=== PATIENT | male | born 2000 | race Caucasian/White ===

== ENCOUNTER → 2022-11-17 | Outpatient (CLI) | payer OTHER, SELFPAY ==
[2022-11-17 15:13] LABS: Absolute Neutrophil Count 2.9 X10^3/uL (2.0-7.7); Basophil# 0.04 X10^3/uL; Basophil% 0.7 % (0-1); Eosinophil# 0.08 X10^3/uL; Eosinophils% 1.5 % (0-5); Hematocrit 44.3 % (40-54); Hemoglobin 15.2 g/dL (13.0-16.5); Lymphocyte % 33.1 % (19-41); Mean Corp Hgb Conc 34.3 g/dL (32-36); Mean Corpuscular Hgb 31.5 pg (27.0-32.0); Mean Corpuscular Volume 91.7 fL (80-94); Monocyte# 0.58 X10^3/uL; Monocyte% 10.7 % (0-10); NRBC Flagged by Analyzer 0 % (0-5); Neutrophil # 2.93 X10^3/uL (2.7-7.7); Neutrophil % 53.8 % (47-70); Platelet Count 331 K/mm3 (150-450); RBC Distribution Width CV 11.9 % (11.6-14.6); RBC Distribution Width SD 40.2 fl (35.1-43.9); Red Blood Count 4.83 M/mm3 (4.6-6.2); White Blood Count 5.4 K/mm3 (4.4-11.0)
[2022-11-17 15:34] LABS: ALB/GLOB Ratio 1.3 RATIO (0.9-2.4); AST(SGOT) 17 U/L (15-37); Alanine Aminotransfer ALT/SGPT 19 U/L (16-61); Albumin, Serum 4.1 g/dL (3.2-5.0); Alkaline Phosphatase 50 U/L (45-117); Anion Gap 7 (5-15); BUN 17 mg/dL (7-18); BUN/Creat Ratio 13.8 RATIO (10-20); Calcium,Total 9.5 mg/dL (8.5-10.1); Chloride 107 mmol/L (98-107); Creatinine, Serum 1.23 mg/dL (0.70-1.30); EST Glomerular Filtration Rate 78 mL/min (>60); Est Glom Filt Rate - Afr Amer 94 mL/min (>60); Globulin 3.2 g/dL (2.2-4.2); Glucose 101 mg/dL (74-106); Protein, Total 7.3 g/dL (6.4-8.2); Sodium Level 142 mmol/L (136-145); Thyroid Stim Hormone (TSH) 1.61 uIU/mL (0.358-3.74)
== END | disposition home or self-care (01) ==
LOC: BIMLAB 14:17
PROVIDERS: PCP Internal Medicine; Referring Provider Internal Medicine; Visit Provider Internal Medicine
DX: Z00.00 Encounter for general adult medical examination without abnormal findings (principal); R59.0 Localized enlarged lymph nodes
CPT/HCPCS: 36415; 80053; 84443; 85025

== ENCOUNTER → 2023-09-02 | Outpatient (CLI) | payer OTHER, SELFPAY ==
--- NOTE | 2023-09-02 13:33 | US_ITS ---
STUDY: SUPERFICIAL ULTRASOUND - CERVICAL REGION. REASON FOR EXAM: Male, 22 years old. Adenopathy TECHNIQUE: A superficial ultrasound was performed with real-time and static little-scale imaging. COMPARISON: None. FINDINGS: Imaging of the right cervical region was obtained. 3 benign-appearing lymph nodes are seen. The largest measures 1 cm x 0.3 cm x 0.6 cm. Imaging of the left cervical region was performed. There is a 6 mm x 5 mm x 2 mm benign-appearing left. US/Head/Neck Soft Tissue IMPRESSION: Subcentimeter bilateral benign-appearing lymph nodes. Electronically Signed: Josep Navarrete MD at 15:33 EST ,
== END | disposition home or self-care (01) ==
LOC: CT 13:30 → US 13:32
PROVIDERS: PCP Internal Medicine; Referring Provider Internal Medicine; Visit Provider Internal Medicine
DX: R59.0 Localized enlarged lymph nodes (principal)
CPT/HCPCS: 76536

== ENCOUNTER → 2024-11-22 | Outpatient (CLI) | payer OTHER, SELFPAY ==
--- NOTE | 2024-11-22 11:05 | US_ITS ---
PROCEDURE: ULTRASOUND HEAD/NECK SOFT TISSUE REASON FOR EXAM: CERVICAL LYMPHADENOPATHY. TECHNIQUE: Real-time grayscale and color flow imaging was performed along with routine image documentation. COMPARISON: 09/02/2023 ultrasound. FINDINGS: Multiple small subcentimeter lymph nodes are noted on the right side of the neck. A solitary subcentimeter lymph node is measured on the left side of the neck. No suspicious lymph nodes. No solid masses or abnormal fluid collections. No vascular abnormalities. US/Head/Neck Soft Tissue IMPRESSION: Small non-suspicious lymph nodes. No other significant findings are demonstrat ed. Reading Location: [place] [id number]
== END | disposition home or self-care (01) ==
LOC: US 11:02
PROVIDERS: PCP Internal Medicine; Referring Provider Internal Medicine; Visit Provider Internal Medicine
DX: R59.0 Localized enlarged lymph nodes (principal)
CPT/HCPCS: 76536